=== PATIENT | male | born 1985 | race Caucasian/White ===

== ENCOUNTER 2016-08-13 14:13 | Emergency (ER) | payer OTHER ==
[2016-08-13 14:53] LABS: URINE BILIRUBIN NEGATIVE (NEGATIVE); URINE BLOOD NEGATIVE (NEGATIVE); URINE GLUCOSE (UA) NORMAL (NORMAL); URINE KETONE NEGATIVE (NEGATIVE); URINE LEUKOCYTE ESTERASE NEGATIVE (NEGATIVE); URINE NITRATE NEGATIVE (NEGATIVE); URINE PROTEIN NEGATIVE (NEGATIVE); UROBILINOGEN NORMAL mg/dL (<1.0)
== END 2016-08-13 17:21 | disposition home or self-care (01) ==
LOC: ER 14:13
PROVIDERS: Internal Medicine
DX: J20.9 Acute bronchitis, unspecified (principal); R05 Cough
CPT/HCPCS: 71020; 81003; 87400; 99283